=== PATIENT | male | born 1975 ===

== ENCOUNTER 2018-08-16 08:01 | Outpatient (CLI) | payer SELFPAY | END 2018-08-16 08:02 | disposition home or self-care (01) | LOC: C.USIC 08:01 | DX: R74.8 Abnormal levels of other serum enzymes (principal) ==

== ENCOUNTER 2018-08-21 15:08 | Outpatient (CLI) | payer SELFPAY | END 2018-08-21 15:09 | disposition home or self-care (01) | LOC: C.LAB 15:08 | DX: R74.8 Abnormal levels of other serum enzymes (principal); E78.00 Pure hypercholesterolemia, unspecified; Z13.9 Encounter for screening, unspecified; Z12.11 Encounter for screening for malignant neoplasm of colon ==

== ENCOUNTER 2018-09-20 10:46 | Outpatient (CLI) | payer SELFPAY | END 2018-09-20 10:47 | disposition home or self-care (01) | LOC: C.LAB 10:46 | DX: R74.0 Nonspecific elevation of levels of transaminase and lactic acid dehydrogenase [LDH] (principal); B18.1 Chronic viral hepatitis B without delta-agent; R94.5 Abnormal results of liver function studies ==

== ENCOUNTER 2018-09-25 07:37 | Day surgery (SDC) | payer SELFPAY ==
--- NOTE | 2018-09-25 10:48 | CP.SDSHP ---
Same Day Surgery H & P - History Proposed Procedure: egd. colonoscopy Pre-Op Diagnosis: fecal occult blood loss - Previous Medical/Surgical History Cardiac: Other (hyperlipidemia, HIV Ab+ (recent), HBVsAg+) Previous Surgical History: knee surgery. ankle surgery - Allergies Allergies: Allergies No Known Allergies Allergy (Verified 09/25/18 07:53) - Physical Exam Vital Signs: Vital Signs 09/25/18 07:54 Temperature 97 F L Pulse Rate 62 Respiratory 19 Rate Blood Pressure 115/71 O2 Sat by Pulse 100 Oximetry Mental Status: Alert & Oriented x3 Neuro: WNL Heart: WNL Lungs: WNL GI: WNL - Impression Impression: Fecal occult blood loss Pt. Evaluated Today:Candidate for Anesthesia & Procedure: Yes - Date & Time Date: 09/25/18 Time: 10:47 Short Stay Discharge - Short Stay Discharge Admitting Diagnosis/Reason for Visit: CHRONIC HEPATITIS B /ABNORMAL LIVER FUNCTION STUDY Disposition: HOME/ ROUTINE
[2018-09-25] MEDS ORDERED: Propofol 10 mg/ml Inj (20 ML) ONE ×2 (10:51→11:01)
[2018-09-25] MEDS ORDERED: Pantoprazole 40 mg EC Tab PO ONE (11:00)
[2018-09-25 11:55] VITALS: TEMP 99.3
[2018-09-25 12:18] VITALS: BP 108/64; PULSE 65; RESP 14; O2SAT 100
== END 2018-09-25 12:30 | disposition home or self-care (01) ==
LOC: C.ENDO 07:37
PROVIDERS: ATTEND Internal Medicine Gastroenterology
DX: K76.6 Portal hypertension (principal); K31.89 Other diseases of stomach and duodenum; K29.70 Gastritis, unspecified, without bleeding; D12.3 Benign neoplasm of transverse colon; K64.8 Other hemorrhoids; B18.1 Chronic viral hepatitis B without delta-agent; R74.0 Nonspecific elevation of levels of transaminase and lactic acid dehydrogenase [LDH]; R94.5 Abnormal results of liver function studies
CPT/HCPCS: 36415; 43239; 45380; 86705; 87350; 87517; 87536; 88305; 88342; J2001; J2704; J3010

== ENCOUNTER 2018-10-04 10:07 | Outpatient (CLI) | payer SELFPAY | END 2018-10-04 10:08 | disposition home or self-care (01) | LOC: C.LAB 10:07 | DX: Z00.01 Encounter for general adult medical examination with abnormal findings (principal) ==